=== PATIENT | male | born 1940 | race Caucasian/White ===

== ENCOUNTER 2018-02-28 17:31 | Inpatient (IN) | payer MEDICARE ==
[~2018-02-28] VITALS: Ht 175.3 cm; Wt 80.0 kg
[2018-02-28] MEDS ORDERED: pantoprazole 40MG/NS 100ML BAG 100 ML IV SCH (18:04)
[2018-02-28] MEDS ORDERED: GLIP10TA11 PO (18:22)
[2018-02-28] MEDS ORDERED: FERR325T28 PO (18:22)
[2018-02-28] MEDS ORDERED: PANT40TA4 PO (18:22)
[2018-02-28] MEDS ORDERED: GABA-532 PO (18:22)
[2018-02-28] MEDS: octreotide inj. 1,250 MCG in normal saline 250ml IV soln 243.75 ML IV SCH (18:45)
[2018-02-28 19:52] LABS: BASOPHILS % (AUTO) 0.2 % (0-1); EOSINOPHILS # (AUTO) 0.2 X10'3 (0-0.9); EOSINOPHILS % (AUTO) 3.4 % (0-6); HEMATOCRIT 26.4 % (42.0-52.0); LYMPHOCYTES # (AUTO) 0.6 X10'3 (1.1-4.8); LYMPHOCYTES % (AUTO) 10.6 % (21-51); MEAN CORPUSCULAR HEMOGLOBIN 29.8 PG (27.0-31.0); MEAN CORPUSCULAR HGB CONC 34.1 % (33.0-36.5); MEAN CORPUSCULAR VOLUME 87.4 FL (78-98); MEAN PLATELET VOLUME 8.3 FL (7.4-10.4); MONOCYTES # (AUTO) 0.6 X10'3 (0-0.9); MONOCYTES % (AUTO) 10.1 % (2-12); NEUTROPHILS # (AUTO) 4.2 X10'3 (1.8-7.7); NEUTROPHILS % (AUTO) 75.7 % (42-75); PLATELET COUNT 128 X10'3 (140-440); RED BLOOD COUNT 3.02 X10'6 (4.70-6.10); RED CELL DISTRIBUTION WIDTH 15.5 % (11.5-14.5); WHITE BLOOD COUNT 5.5 X10'3 (4.5-11.0)
[2018-02-28 20:06] LABS: ALANINE AMINOTRANSFERASE 22 U/L (12-78); ALBUMIN 2.4 G/DL (3.4-5.0); ALBUMIN/GLOBULIN RATIO 0.6 (1.1-1.5); ALKALINE PHOSPHATASE 78 IU/L (46-116); ANION GAP 6 (8-16); ASPARTATE AMINO TRANSFERASE 33 U/L (10-37); BILIRUBIN,TOTAL 2.1 MG/DL (0.1-1.0); BLOOD UREA NITROGEN 26 MG/DL (7-18); BUN/CREATININE RATIO 22.2 (5.4-32.0); CALCIUM 8.2 MG/DL (8.5-10.1); CHLORIDE 104 MMOL/L (99-107); CREATININE 1.17 MG/DL (0.60-1.10); GLUCOSE 370 MG/DL (70-104); POTASSIUM 4.5 MMOL/L (3.5-5.1); SODIUM 138 MMOL/L (135-145); TOTAL CARBON DIOXIDE 28.1 MMOL/L (24-32); TOTAL PROTEIN 6.7 G/DL (6.4-8.2); eGFR 60 ML/MIN
[2018-02-28 20:07] LABS: INR 1.2 INR; PARTIAL THROMBOPLASTIN TIME 27 SECONDS (22-32); PROTHROMBIN TIME 12.5 SECONDS (9.0-12.0)
[2018-02-28] MEDS ORDERED: MESSAGE TO PHARMACY PO ONE (20:45)
[2018-02-28] MEDS ORDERED: dextrose ORAL solution 15 GM/59 ML bottle PO PRN ×2 (20:45)
[2018-02-28] MEDS ORDERED: acetaminophen 325mg tablet PO PRN (20:45)
[2018-02-28] MEDS ORDERED: mag hydrox/Alum hydrox/simeth 30ml oral suspension PO PRN (20:45)
[2018-02-28] MEDS ORDERED: bisacodyl 10mg suppository rectal RC PRN (20:45)
[2018-02-28] MEDS ORDERED: ondansetron/PF 4mg/2ml inj IV PRN (20:45)
[2018-02-28] MEDS ORDERED: dextrose 50%-water 50ml dispensing syringe IV PRN ×2 (20:45)
[2018-02-28] MEDS ORDERED: acetaminophen 650mg rectal suppository RC PRN (20:45)
[2018-02-28] MEDS ORDERED: glucagon, human recombinant 1mg kit SUBCUT PRN (20:45)
[2018-02-28] MEDS ORDERED: octreotide inj. 1,250 MCG in normal saline 250ml IV soln 243.75 ML IV SCH (20:55)
[2018-02-28 21:08] LABS: HEMOGLOBIN A1C 10.3 % (4.5-6.2)
[2018-02-28 22:00] VITALS: BP 134/65
[2018-02-28] MEDS: normal saline 1000ml 1,000 ML IV SCH (22:00)
[2018-02-28] MEDS: insulin Lispro (HumaLOG) vial - multi-dose SQ SCH (22:45)
[2018-02-28] MEDS: insulin glargine (Lantus) pen - multi-dose SQ SCH (22:46)
[2018-02-28] MEDS: pantoprazole 40MG/NS 100ML BAG 100 ML IV SCH (22:47)
[2018-02-28 23:59] LABS: HEMOGLOBIN 8.3 g/dl (14.0-17.9); MEAN CORPUSCULAR HEMOGLOBIN 29.1 PG (27.0-31.0); MEAN CORPUSCULAR HGB CONC 33.3 % (33.0-36.5); MEAN CORPUSCULAR VOLUME 87.4 FL (78-98); MEAN PLATELET VOLUME 8.5 FL (7.4-10.4); PLATELET COUNT 119 X10'3 (140-440); RED BLOOD COUNT 2.86 X10'6 (4.70-6.10); RED CELL DISTRIBUTION WIDTH 15.5 % (11.5-14.5); WHITE BLOOD COUNT 5.8 X10'3 (4.5-11.0)
[2018-03-01] VITALS (10 sets, daily range): BP systolic 112–150; BP diastolic 54–72
[2018-03-01] MEDS: pantoprazole 40MG/NS 100ML BAG 100 ML IV SCH ×5 (04:03→20:32)
[2018-03-01 06:07] LABS: BASOPHILS % (AUTO) 0.4 % (0-1); EOSINOPHILS # (AUTO) 0.3 X10'3 (0-0.9); EOSINOPHILS % (AUTO) 5.7 % (0-6); HEMOGLOBIN 8.5 g/dl (14.0-17.9); LYMPHOCYTES # (AUTO) 0.6 X10'3 (1.1-4.8); LYMPHOCYTES % (AUTO) 10.7 % (21-51); MEAN CORPUSCULAR HEMOGLOBIN 29.9 PG (27.0-31.0); MEAN CORPUSCULAR HGB CONC 34.2 % (33.0-36.5); MEAN CORPUSCULAR VOLUME 87.6 FL (78-98); MEAN PLATELET VOLUME 8.9 FL (7.4-10.4); MONOCYTES # (AUTO) 0.7 X10'3 (0-0.9); MONOCYTES % (AUTO) 10.8 % (2-12); NEUTROPHILS # (AUTO) 4.4 X10'3 (1.8-7.7); NEUTROPHILS % (AUTO) 72.4 % (42-75); PLATELET COUNT 116 X10'3 (140-440); RED BLOOD COUNT 2.85 X10'6 (4.70-6.10); RED CELL DISTRIBUTION WIDTH 15.9 % (11.5-14.5)
[2018-03-01 06:34] LABS: ALANINE AMINOTRANSFERASE 18 U/L (12-78); ALBUMIN 2.2 G/DL (3.4-5.0); ALBUMIN/GLOBULIN RATIO 0.6 (1.1-1.5); ALKALINE PHOSPHATASE 71 IU/L (46-116); ANION GAP 8 (8-16); ASPARTATE AMINO TRANSFERASE 31 U/L (10-37); BILIRUBIN,TOTAL 1.6 MG/DL (0.1-1.0); BLOOD UREA NITROGEN 25 MG/DL (7-18); BUN/CREATININE RATIO 23.8 (5.4-32.0); CALCIUM 7.8 MG/DL (8.5-10.1); CHLORIDE 107 MMOL/L (99-107); CREATININE 1.05 MG/DL (0.60-1.10); GLUCOSE 260 MG/DL (70-104); MAGNESIUM 1.3 MG/DL (1.5-2.4); POTASSIUM 3.8 MMOL/L (3.5-5.1); SODIUM 142 MMOL/L (135-145); TOTAL CARBON DIOXIDE 26.6 MMOL/L (24-32); TOTAL PROTEIN 6.1 G/DL (6.4-8.2); eGFR 68 ML/MIN
[2018-03-01 06:38] LABS: INR 1.2 INR; PARTIAL THROMBOPLASTIN TIME 28 SECONDS (22-32); PROTHROMBIN TIME 12.1 SECONDS (9.0-12.0)
--- NOTE | 2018-03-01 06:39 | NUR ---
Patient in room PCU 3012. I have received report from TRISH Bautista and had the opportunity to ask questions and assume patient care.
[2018-03-01] MEDS: gabapentin 300mg capsule PO SCH (08:02)
[2018-03-01] MEDS: ferrous sulfate 325mg tablet PO SCH (08:02)
[2018-03-01] MEDS: docusate sod 100mg capsule PO SCH ×2 (08:03→20:31)
[2018-03-01] MEDS: insulin Lispro (HumaLOG) vial - multi-dose SQ SCH ×2 (09:55→14:00)
[2018-03-01] MEDS: normal saline 1000ml 1,000 ML IV SCH (11:34)
--- NOTE | 2018-03-01 11:52 | NUR ---
Initial: Pt admitted with upper GI bleed found with approximately 2L bloody emesis, however now no further hematemesis noted per H&P. Pt with A1c 10.3 seen at bedside. Pt states he takes his DM meds per rx w/o difficulties and states that he hasn't checked his BG levels the last couple of months d/t his meter not working, however pt states his usual BG levels were <140 when his meter was working. Encouraged pt to get new meter in order to better monitor his DM. Pt states he saw an MD a month ago for DM management. Pt given written and verbal DM ed with referral to outpatient DM class and RD contact information. Pt currently NPO and states he has been a vegetarian all his life and that he drinks protein supplements TID, however denied desire to be on a vegetarian diet once diet is advanced. Pt denies any food allergies, difficulty chewing/swallowing although he does have dentures, or constipation/diarrhea. No documented BM, pt states LBM 02/27, on routine Colace. Will continue to follow. Recommendations: 1) Advance to CHO controlled diet as medically indicated 2) Monitor need for ONS with diet advancement 3) Monitor need for additional bowel care 4) Wt per rx Addendum: 03/01/18 at [address] Amended: Links added.
[2018-03-01] MEDS ORDERED: potassium Cl 40MEQ/NS 500ml 500 ML IV PRN ×2 (13:45)
[2018-03-01] MEDS ORDERED: magnesium 2GM in 50ml NS 50 ML IV PRN (13:45)
[2018-03-01] MEDS ORDERED: potassium Cl 20 mEq SR tablet PO PRN (13:45)
[2018-03-01] MEDS ORDERED: magnesium 4gm in 100ml NS 100 ML IV PRN (13:45)
[2018-03-01] MEDS: magnesium Cl slow-release 64mg tablet PO PRN (13:56)
--- NOTE | 2018-03-01 15:00 | NUR ---
Pt in GI lab for procedure.
[2018-03-01] MEDS ORDERED: fentaNYL/PF 50MCG/1 ML 2ML syringe ONE (15:15)
[2018-03-01] MEDS ORDERED: LIDOcaine Viscous 15ml cup ONE (15:16)
[2018-03-01] MEDS ORDERED: MIDAZolam 5mg/5ml vial ONE (15:16)
--- NOTE | 2018-03-01 18:21 | NUR ---
Problems reprioritized. Patient report given, questions answered & plan of care reviewed with TRISH Bautista.
[2018-03-01] MEDS: insulin glargine (Lantus) pen - multi-dose SQ SCH (21:43)
[2018-03-01 23:12] LABS: HEMATOCRIT 27.3 % (42.0-52.0); HEMOGLOBIN 9.2 g/dl (14.0-17.9); MEAN CORPUSCULAR HEMOGLOBIN 29.6 PG (27.0-31.0); MEAN CORPUSCULAR HGB CONC 33.6 % (33.0-36.5); MEAN CORPUSCULAR VOLUME 88.3 FL (78-98); MEAN PLATELET VOLUME 8.6 FL (7.4-10.4); PLATELET COUNT 117 X10'3 (140-440); RED BLOOD COUNT 3.09 X10'6 (4.70-6.10); RED CELL DISTRIBUTION WIDTH 15.8 % (11.5-14.5); WHITE BLOOD COUNT 5.6 X10'3 (4.5-11.0)
[2018-03-02] MEDS: normal saline 1000ml 1,000 ML IV SCH ×3 (01:00→13:53)
[2018-03-02] MEDS: pantoprazole 40MG/NS 100ML BAG 100 ML IV SCH ×4 (02:17→13:51)
[2018-03-02 03:00] VITALS: BP 128/53
[2018-03-02] MEDS: octreotide inj. 1,250 MCG in normal saline 250ml IV soln 243.75 ML IV SCH (05:02)
--- NOTE | 2018-03-02 06:13 | NUR ---
Patient in room PCU 3012. I have received report from TRISH Bautista and had the opportunity to ask questions and assume patient care.
[2018-03-02 06:44] LABS: BASOPHILS % (AUTO) 0.1 % (0-1); EOSINOPHILS # (AUTO) 0.2 X10'3 (0-0.9); EOSINOPHILS % (AUTO) 2.6 % (0-6); HEMATOCRIT 25.3 % (42.0-52.0); HEMOGLOBIN 8.5 g/dl (14.0-17.9); LYMPHOCYTES # (AUTO) 0.4 X10'3 (1.1-4.8); LYMPHOCYTES % (AUTO) 4.6 % (21-51); MEAN CORPUSCULAR HEMOGLOBIN 29.3 PG (27.0-31.0); MEAN CORPUSCULAR HGB CONC 33.4 % (33.0-36.5); MEAN CORPUSCULAR VOLUME 87.7 FL (78-98); MEAN PLATELET VOLUME 8.1 FL (7.4-10.4); MONOCYTES # (AUTO) 0.7 X10'3 (0-0.9); MONOCYTES % (AUTO) 8.2 % (2-12); NEUTROPHILS # (AUTO) 7.1 X10'3 (1.8-7.7); NEUTROPHILS % (AUTO) 84.5 % (42-75); PLATELET COUNT 134 X10'3 (140-440); RED BLOOD COUNT 2.89 X10'6 (4.70-6.10); RED CELL DISTRIBUTION WIDTH 15.8 % (11.5-14.5); WHITE BLOOD COUNT 8.4 X10'3 (4.5-11.0)
[2018-03-02 06:55] LABS: INR 1.2 INR; PARTIAL THROMBOPLASTIN TIME 29 SECONDS (22-32); PROTHROMBIN TIME 12.3 SECONDS (9.0-12.0)
[2018-03-02 07:00] VITALS: BP 115/53
[2018-03-02 07:05] LABS: ALANINE AMINOTRANSFERASE 18 U/L (12-78); ALBUMIN 2.1 G/DL (3.4-5.0); ALBUMIN/GLOBULIN RATIO 0.5 (1.1-1.5); ALKALINE PHOSPHATASE 69 IU/L (46-116); ANION GAP 9 (8-16); ASPARTATE AMINO TRANSFERASE 34 U/L (10-37); BILIRUBIN,TOTAL 1.7 MG/DL (0.1-1.0); BLOOD UREA NITROGEN 17 MG/DL (7-18); BUN/CREATININE RATIO 17.9 (5.4-32.0); CALCIUM 7.3 MG/DL (8.5-10.1); CHLORIDE 105 MMOL/L (99-107); CREATININE 0.95 MG/DL (0.60-1.10); GLUCOSE 223 MG/DL (70-104); MAGNESIUM 1.1 MG/DL (1.5-2.4); POTASSIUM 3.7 MMOL/L (3.5-5.1); SODIUM 139 MMOL/L (135-145); TOTAL CARBON DIOXIDE 24.9 MMOL/L (24-32); eGFR 76 ML/MIN
[2018-03-02] MEDS: ferrous sulfate 325mg tablet PO SCH (08:05)
[2018-03-02] MEDS: gabapentin 300mg capsule PO SCH (08:06)
[2018-03-02] MEDS: docusate sod 100mg capsule PO SCH ×2 (08:06→21:57)
[2018-03-02] MEDS: insulin Lispro (HumaLOG) vial - multi-dose SQ SCH ×2 (08:22→13:48)
[2018-03-02 11:00] VITALS: BP 123/58
[2018-03-02 15:00] VITALS: BP 128/60
[2018-03-02] MEDS ORDERED: magnesium 4gm in 100ml NS 100 ML IV ONE (17:45)
[2018-03-02 18:00] VITALS: BP 125/57
--- NOTE | 2018-03-02 18:30 | NUR ---
Patient in room PCU 3012. I have received report from JOHN CHAMBERS and had the opportunity to ask questions and assume patient care.
--- NOTE | 2018-03-02 18:40 | NUR ---
Problems reprioritized. Patient report given, questions answered & plan of care reviewed with TRISH Mcfarlane.
[2018-03-02] MEDS: pantoprazole 40mg Tablet.DR PO SCH (21:57)
[2018-03-02 22:00] VITALS: BP 130/54
[2018-03-02] MEDS: insulin glargine (Lantus) pen - multi-dose SQ SCH (22:00)
[2018-03-03 02:00] VITALS: BP 110/53
[2018-03-03 05:01] LABS: BASOPHILS % (AUTO) 0.3 % (0-1); EOSINOPHILS # (AUTO) 0.4 X10'3 (0-0.9); EOSINOPHILS % (AUTO) 5.9 % (0-6); HEMATOCRIT 24.2 % (42.0-52.0); HEMOGLOBIN 8.3 g/dl (14.0-17.9); LYMPHOCYTES # (AUTO) 0.7 X10'3 (1.1-4.8); LYMPHOCYTES % (AUTO) 10.4 % (21-51); MEAN CORPUSCULAR HEMOGLOBIN 30.1 PG (27.0-31.0); MEAN CORPUSCULAR HGB CONC 34.3 % (33.0-36.5); MEAN CORPUSCULAR VOLUME 87.8 FL (78-98); MONOCYTES # (AUTO) 0.8 X10'3 (0-0.9); MONOCYTES % (AUTO) 11.8 % (2-12); NEUTROPHILS # (AUTO) 4.6 X10'3 (1.8-7.7); NEUTROPHILS % (AUTO) 71.6 % (42-75); PLATELET COUNT 132 X10'3 (140-440); RED BLOOD COUNT 2.75 X10'6 (4.70-6.10); RED CELL DISTRIBUTION WIDTH 16.1 % (11.5-14.5); WHITE BLOOD COUNT 6.4 X10'3 (4.5-11.0)
[2018-03-03 05:09] LABS: INR 1.2 INR; PARTIAL THROMBOPLASTIN TIME 29 SECONDS (22-32); PROTHROMBIN TIME 12.1 SECONDS (9.0-12.0)
[2018-03-03 05:16] LABS: ALANINE AMINOTRANSFERASE 13 U/L (12-78); ALBUMIN/GLOBULIN RATIO 0.5 (1.1-1.5); ALKALINE PHOSPHATASE 69 IU/L (46-116); ANION GAP 8 (8-16); ASPARTATE AMINO TRANSFERASE 32 U/L (10-37); BILIRUBIN,TOTAL 1.7 MG/DL (0.1-1.0); BLOOD UREA NITROGEN 13 MG/DL (7-18); BUN/CREATININE RATIO 15.3 (5.4-32.0); CALCIUM 7.4 MG/DL (8.5-10.1); CHLORIDE 106 MMOL/L (99-107); CREATININE 0.85 MG/DL (0.60-1.10); GLUCOSE 105 MG/DL (70-104); MAGNESIUM 1.7 MG/DL (1.5-2.4); POTASSIUM 3.4 MMOL/L (3.5-5.1); SODIUM 140 MMOL/L (135-145); TOTAL CARBON DIOXIDE 26.1 MMOL/L (24-32); TOTAL PROTEIN 5.8 G/DL (6.4-8.2); eGFR 87 ML/MIN
--- NOTE | 2018-03-03 06:19 | NUR ---
Problems reprioritized. Patient report given, questions answered & plan of care reviewed with JOHN CHAMBERS.
--- NOTE | 2018-03-03 06:22 | NUR ---
Patient in room PCU 3012. I have received report from TRISH Mcfarlane and had the opportunity to ask questions and assume patient care.
[2018-03-03 07:00] VITALS: BP 132/60
[2018-03-03] MEDS: docusate sod 100mg capsule PO SCH ×2 (07:14→19:40)
[2018-03-03] MEDS: gabapentin 300mg capsule PO SCH (07:14)
[2018-03-03] MEDS: pantoprazole 40mg Tablet.DR PO SCH ×2 (07:14→19:40)
[2018-03-03] MEDS: potassium Cl 20 mEq SR tablet PO PRN ×2 (07:14→13:05)
[2018-03-03] MEDS: ferrous sulfate 325mg tablet PO SCH (07:14)
[2018-03-03 11:00] VITALS: BP 118/54
[2018-03-03] MEDS: insulin Lispro (HumaLOG) vial - multi-dose SQ SCH ×2 (13:02→19:43)
[2018-03-03 15:00] VITALS: BP 107/53
--- NOTE | 2018-03-03 18:50 | NUR ---
Patient in room PCU 3012. I have received report from Hayley CHAMBERS and had the opportunity to ask questions and assume patient care.
[2018-03-03 19:00] VITALS: BP 127/62
--- NOTE | 2018-03-03 19:12 | NUR ---
Problems reprioritized. Patient report given, questions answered & plan of care reviewed with TRISH Garcia.
[2018-03-03] MEDS: insulin glargine (Lantus) pen - multi-dose SQ SCH (22:49)
[2018-03-03 23:00] VITALS: BP 111/52
[2018-03-04 05:27] LABS: BASOPHILS % (AUTO) 0.3 % (0-1); EOSINOPHILS # (AUTO) 0.3 X10'3 (0-0.9); EOSINOPHILS % (AUTO) 6.1 % (0-6); HEMATOCRIT 25.6 % (42.0-52.0); HEMOGLOBIN 8.6 g/dl (14.0-17.9); LYMPHOCYTES # (AUTO) 0.4 X10'3 (1.1-4.8); LYMPHOCYTES % (AUTO) 8.3 % (21-51); MEAN CORPUSCULAR HEMOGLOBIN 29.5 PG (27.0-31.0); MEAN CORPUSCULAR HGB CONC 33.6 % (33.0-36.5); MEAN CORPUSCULAR VOLUME 87.7 FL (78-98); MEAN PLATELET VOLUME 8.3 FL (7.4-10.4); MONOCYTES # (AUTO) 0.7 X10'3 (0-0.9); MONOCYTES % (AUTO) 14.2 % (2-12); NEUTROPHILS # (AUTO) 3.5 X10'3 (1.8-7.7); NEUTROPHILS % (AUTO) 71.1 % (42-75); PLATELET COUNT 150 X10'3 (140-440); RED BLOOD COUNT 2.92 X10'6 (4.70-6.10)
[2018-03-04 05:34] LABS: ALANINE AMINOTRANSFERASE 14 U/L (12-78); ALBUMIN/GLOBULIN RATIO 0.5 (1.1-1.5); ALKALINE PHOSPHATASE 84 IU/L (46-116); ANION GAP 8 (8-16); ASPARTATE AMINO TRANSFERASE 33 U/L (10-37); BILIRUBIN,TOTAL 2.1 MG/DL (0.1-1.0); BLOOD UREA NITROGEN 12 MG/DL (7-18); CALCIUM 7.4 MG/DL (8.5-10.1); CHLORIDE 103 MMOL/L (99-107); CREATININE 0.86 MG/DL (0.60-1.10); GLUCOSE 97 MG/DL (70-104); MAGNESIUM 1.3 MG/DL (1.5-2.4); POTASSIUM 3.8 MMOL/L (3.5-5.1); SODIUM 137 MMOL/L (135-145); TOTAL CARBON DIOXIDE 25.7 MMOL/L (24-32); TOTAL PROTEIN 6.3 G/DL (6.4-8.2); eGFR 86 ML/MIN
[2018-03-04 05:37] LABS: INR 1.2 INR; PROTHROMBIN TIME 12.1 SECONDS (9.0-12.0)
--- NOTE | 2018-03-04 06:20 | NUR ---
Problems reprioritized. Patient report given, questions answered & plan of care reviewed with Mayito RN.
[2018-03-04 06:39] VITALS: BP 133/62
[2018-03-04] MEDS: pantoprazole 40mg Tablet.DR PO SCH (08:24)
[2018-03-04] MEDS: ferrous sulfate 325mg tablet PO SCH (08:24)
[2018-03-04] MEDS: gabapentin 300mg capsule PO SCH (08:24)
[2018-03-04] MEDS: docusate sod 100mg capsule PO SCH (08:25)
[2018-03-04] MEDS: magnesium Cl slow-release 64mg tablet PO PRN (08:31)
[2018-03-04] MEDS: insulin Lispro (HumaLOG) vial - multi-dose SQ SCH (08:39)
[2018-03-04 11:00] VITALS: BP 115/52
--- NOTE | 2018-03-04 14:00 | NUR ---
Patient discharge instruction was given to patient and friend, patient expressed verbal understanding of returning to er if bleeding is to occur and also that patient is to follow up with physician in a week. Patient did not have any new medications added, patient had two IV sites dc'd at discharge both in right arm, minimal bleeding and canulas were intact and whole upon removal. patient left in private vehicle.
--- NOTE | 2018-03-04 19:14 | NUR ---
Patient belongings may have been found in room 3013 and have been labeled with patient identifier and given to our our admission dept.
== END 2018-03-04 13:52 | disposition home or self-care (01) | DRG 432 ==
LOC: ER 17:31 → PCU 3S 20:53 → CMPBEDREQ 22:33 → PCU 3S 03-03 21:30
PROVIDERS: ADMIT Internal Medicine Critical Care Medicine; ATTEND Internal Medicine Critical Care Medicine
PROC: 06L38CZ Occlusion of Esophageal Vein with Extraluminal Device, Via Natural or Artificial Opening Endoscopic (ICD-10-PCS; principal; 2018-03-01)
PROC: 0DB68ZX Excision of Stomach, Via Natural or Artificial Opening Endoscopic, Diagnostic (ICD-10-PCS; 2018-03-01)
DX: K74.60 Unspecified cirrhosis of liver (principal); I85.11 Secondary esophageal varices with bleeding; K92.0 Hematemesis; K76.6 Portal hypertension; K22.8 Other specified diseases of esophagus; I86.4 Gastric varices; K44.9 Diaphragmatic hernia without obstruction or gangrene; K29.70 Gastritis, unspecified, without bleeding; E11.9 Type 2 diabetes mellitus without complications; H91.90 Unspecified hearing loss, unspecified ear; H54.7 Unspecified visual loss; G89.29 Other chronic pain; Z60.2 Problems related to living alone; Z79.899 Other long term (current) drug therapy
CPT/HCPCS: 36415; 43239; 43244; 80053; 82948; 83036; 83735; 85025; 85027; 85610; 85730; 86885; 86900; 86901; 87070; 88305; 88313; 88342; 96365; 96366; 99152; 99291; A4620; C9113; G0378; J1815; J2250; J2354; J3010; J3475; J7030